=== PATIENT | female | born 1930 | race Hispanic/Latino ===

== ENCOUNTER 2017-03-02 08:48 | Outpatient (CLI) | payer MEDICARE ==
--- NOTE | 2017-03-02 11:05 | Mammography Report ---
BILATERAL MAMMOGRAM with CAD: HISTORY:Cancer screening. Comparison study is dated February 05, 2015. FINDINGS: The breasts are almost entirely fat (<25% glandular). No mass, distortion, suspicious calcification, or skin change is seen. IMPRESSION: Negative mammogram. There is no mammographic evidence of malignancy. RECOMMENDATION: Follow-up per ACS guidelines. BI-RADS CATEGORY: 1 = Negative ACR BI-RADS MAMMOGRAPHIC CODES: 0 = Needs additional imaging evaluation; 1 = Negative; 2 = Benign; 3 = Probably benign; 4 = Suspicious; 5 = Malignant; 6 = Known biopsy-proven malignancy COMMENT: 1. Dense breast tissue, i.e., adenosis, fibrocystic changes, etc., may obscure an underlying neoplasm. 2. Approximately 10% of cancers are not detected with mammography. 3. A negative mammography report should not delay biopsy if a clinically suspicious mass is present. COMMENT: Patient follow-up letters are generated in [employer].
== END 2017-03-02 08:49 | disposition home or self-care (01) ==
LOC: MAMMO 08:48
PROVIDERS: ATTEND Obstetrics & Gynecology Gynecology
DX: Z12.31 Encounter for screening mammogram for malignant neoplasm of breast (principal)
CPT/HCPCS: 77067; G0202

== ENCOUNTER 2018-11-18 12:00 | Outpatient (CLI) | payer MEDICARE ==
[2018-11-18 12:27] LABS: Basophils % (Auto) 0.4 % (0.0-1.8); Eosinophils # (Auto) 0.1 K/mm3 (0.0-0.4); Eosinophils % (Auto) 1.4 % (0.0-4.3); Hematocrit 38.6 % (30.3-42.9); Lymphocytes # (Auto) 1.7 K/mm3 (1.2-5.4); Lymphocytes % (Auto) 23.8 % (13.4-35.0); Mean Corpuscular HGB Conc 34 % (30-34); Mean Corpuscular Volume 90 fl (79-97); Monocytes # (Auto) 0.9 K/mm3 (0.0-0.8); Monocytes % (Auto) 12.3 % (0.0-7.3); Platelet Count 217 K/mm3 (140-440); Red Blood Count 4.28 M/mm3 (3.65-5.03); Red Cell Distribution Width 12.9 % (13.2-15.2)
[2018-11-18 13:14] LABS: Erythrocyte Sedimentation Rate 10 mm/Hr (0-20)
== END 2018-11-18 12:01 | disposition home or self-care (01) ==
LOC: LAB 12:00
PROVIDERS: ATTEND Psychiatry & Neurology Neurology
DX: R51 Headache (principal); E11.9 Type 2 diabetes mellitus without complications; I10 Essential (primary) hypertension; E78.00 Pure hypercholesterolemia, unspecified; K21.9 Gastro-esophageal reflux disease without esophagitis; E03.9 Hypothyroidism, unspecified; M19.90 Unspecified osteoarthritis, unspecified site; Z90.49 Acquired absence of other specified parts of digestive tract
CPT/HCPCS: 36415; 85025; 85652

== ENCOUNTER 2020-02-26 15:42 | Inpatient (IN) | payer MEDICARE ==
[2020-02-26] MEDS ORDERED: ACETAMINOPHEN 500 MG TAB PO ONE (16:37)
--- NOTE | 2020-02-26 17:11 | Emergency Department Report ---
ED Fever HPI - General Chief Complaint: Fever Stated Complaint: WEAKNESS/FALL/FEVER Time Seen by Provider: 02/26/20 16:25 - History of Present Illness Initial Comments: 89-year-old female with history of A. fib, CVA, presents to ED following a fall earlier today. Daughter states patient fell earlier this morning at around 8 AM and then again this afternoon at around 3 PM. Her daughter called EMS because she was unable to pick her up by herself. EMS reported patient had a temperature of 102 on their arrival. Daughter states 2 days ago, patient began complaining of some lower back pain. Daughter states she thought it might be due to a UTI because she is prone to having UTIs. Patient denies any headache, sore throat, cough, chest pain, shortness of breath, abdominal pain, vomiting, diarrhea. Patient also denies urinary frequency, dysuria, although she reported to the nurse that she has been having burning with urination. Patient does confirm that she has been having left flank pain x2 days. Daughter states xochitl quan has not had any contact with any one known to be positive for coronavirus. Timing/Duration: this afternoon Fever Severity/Quality: greater than 100.5 F Associated Symptoms: other (reports dysuria and back pain). denies: abdominal pain, chest pain, cough, headache, muscle aches, nausea/vomiting, shortness of breath, sore throat ED Review of Systems ROS: Stated complaint: WEAKNESS/FALL/FEVER Other details as noted in HPI Comment: All other systems reviewed and negative Constitutional: denies: fever ENT: denies: throat pain Respiratory: denies: cough, shortness of breath Cardiovascular: denies: chest pain Gastrointestinal: denies: abdominal pain, vomiting, diarrhea Genitourinary: dysuria. 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) Hx Heart Attack/AMI: No Hx Diabetes: Yes (TYPE II NOTED ON CARDIAC NOTES/PATIENT DENIES) Hx GERD: Yes Hx Liver Disease: No Hx Arthritis: Yes Hx Kidney Stones: Yes (08/02/2013) Hx HIV: No Additional medical history: Pacemaker, UTI, Atrial fibrillation - Surgical History Hx Pacemaker: Yes Hx Appendectomy: Yes (1988) - Social History Smoking Status: Never Smoker Substance Use Type: None - Medications Home Medications: Home Medications Medication Instructions Recorded Confirmed Last Taken Type Atorvastatin [Lipitor] 20 mg PO DAILY 11/17/13 07/01/15 07/01/15 History 80 mg Dabigatran Etexilate Mesylate 150 mg PO BID 11/17/13 07/01/15 07/01/15 History [Pradaxa] 150 mg Levothyroxine Sodium [Synthroid] 75 mcg PO DAILY 11/17/13 07/01/15 07/01/15 History 75 mcg Lactobacillus Combination No.8 1 cap PO DAILY 06/19/14 07/01/15 07/01/15 History [Adult Probiotic] Spironolactone 12.5 mg PO DAILY 06/19/14 07/01/15 07/01/15 History Cholecalciferol (Vitamin D3) 1,000 unit PO DAILY 04/05/15 07/01/15 07/01/15 History [Vitamin D3] Cyanocobalamin/Folic Acid [Vitamin 1 each PO DAILY 04/05/15 07/01/15 07/01/15 History D15-Wrdtz Acid Tablet] carvediloL [Coreg] 6.25 mg PO BID 07/01/15 07/01/15 07/01/15 History ED Physical Exam - General Limitations: Physical Limitation General appearance: alert, in no apparent distress - Head Head exam: Present: atraumatic, normocephalic - Eye Eye exam: Present: normal appearance - ENT ENT exam: Present: mucous membranes moist - Neck Neck exam: Present: normal inspection - Respiratory Respiratory exam: Present: normal lung sounds bilaterally. Absent: respiratory distress - Cardiovascular Cardiovascular Exam: Present: tachycardia, irregular rhythm - GI/Abdominal GI/Abdominal exam: Present: soft. Absent: distended, tenderness - Extremities Exam Extremities exam: Present: normal inspection - Back Exam Back exam: Present: CVA tenderness (L) - Neurological Exam Neurological exam: Present: alert, oriented X3 - Psychiatric Psychiatric exam: Present: normal affect, normal mood - Skin Skin exam: Present: warm, dry, intact, normal color ED Course Vital Signs 02/26/20 02/26/20 02/26/20 15:52 16:00 16:15 Temperature 100.6 F H Pulse Rate 111 H 120 H 111 H Respiratory 24 16 17 Rate Blood Pressure 156/75 153/71 O2 Sat by Pulse 96 96 Oximetry 02/26/20 02/26/20 02/26/20 16:30 16:45 17:00 Temperature Pulse Rate 111 H 108 H 110 H Respiratory 14 26 H 21 Rate Blood Pressure 159/69 159/69 160/69 O2 Sat by Pulse 96 96 95 Oximetry 02/26/20 02/26/20 02/26/20 17:15 17:30 17:45 Temperature Pulse Rate 105 H 114 H 107 H Respiratory 24 10 L 20 Rate Blood Pressure 156/71 153/90 149/79 O2 Sat by Pulse 96 91 96 Oximetry 02/26/20 02/26/20 02/26/20 18:00 18:17 18:25 Temperature 98.6 F Pulse Rate 100 H 100 H Respiratory 20 15 Rate Blood Pressure 129/67 129/67 O2 Sat by Pulse 95 96 Oximetry 02/26/20 02/26/20 18:30 19:00 Temperature Pulse Rate 102 H 85 Respiratory 23 21 Rate Blood Pressure 122/64 115/63 O2 Sat by Pulse 93 94 Oximetry - Reevaluation(s) Reevaluation #1: 02/26/20 17:56 Apparent delay in lab results due to power outage. ED Medical Decision Making - Lab Data Result diagrams: 02/26/20 17:00 02/26/20 17:00 - EKG Data -: EKG Interpreted by Ut EKG shows normal: axis, QRS complexes, ST-T waves Rate: tachycardia (rate 118) - EKG Data Interpretation: no acute changes, other (Afib) - Radiology Data Radiology results: report reviewed, image reviewed - Medical Decision Making 89-year-old female presents to ED with fever and left-sided flank pain. There is some concern that patient may have a UTI, due to multiple urinary tract infections in the past. Patient reported some dysuria, but denied any respiratory symptoms. Patient initially had low-grade fever of 100.6 and mildly tachycardic at 111. O2 sats have remained normal. Blood pressure has been within normal limits as well. WBCs resulted at 14, with lactic acid within normal limits. Chest x-ray shows left-sided pneumonia with small parapneumonic effusion. This could be source of patient's left-sided back pain. Urine also shows evidence of a UTI with patient having 4+ bacteria. Blood and urine c ultures have been sent. Patient initiated on antibiotics. Patient did not meet severe sepsis criteria, however blood pressure began to trend down (although still with normal MAP), so fluid bolus of 30 cc/kg was ordered. Patient had 2 falls at home today and is on pradaxa for her Afib, so CT Head was ordered and read as negative. Patient will be admitted to the hospitalist, Dr Barber, for further management. She would like pt placed on COVID precautions and COVID test sent. - Differential Diagnosis UTI, pneumonia, intracranial bleed Critical care attestation.: If time is entered above; I have spent that time in minutes in the direct care of this critically ill patient, excluding procedure time. ED Disposition Clinical Impression: Pneumonia, UTI (urinary tract infection) Disposition: OP ADMIT IP TO THIS HOSP Is pt being admited?: Yes Condition: Stable Instructions: Bacterial Pneumonia (ED) Referrals: PRIMARY CARE, [Primary Care Provider] - 3-5 Days Time of Disposition: 19:46
--- NOTE | 2020-02-26 17:48 | XRay Report ---
CHEST 1 VIEW 02/26/2020 4:52 PM INDICATION / CLINICAL INFORMATION: fever. COMPARISON: Left subclavian pacemaker leads. FINDINGS: SUPPORT DEVICES: None. HEART / MEDIASTINUM: No significant abnormality. LUNGS / PLEURA: Left basilar parenchymal disease with Small left pleural effusion. Right lung clear. No pneumothorax. ADDITIONAL FINDINGS: No significant additional findings. IMPRESSION: 1. Left lower lobe pneumonia with probable small parapneumonic effusion Signer Name: Oswald Barkley MD Signed: 02/26/2020 5:43 PM Workstation Name: [id number]
[2020-02-26] MEDS ORDERED: cefTRIAXone/NS 1 GM/50 ML 1 GM/50 ML BAG IV ONE (18:00)
[2020-02-26] MEDS ORDERED: AZITHROMYCIN 250 MG TAB PO ONE (18:01)
[2020-02-26 18:08] LABS: Hematocrit 39.2 % (30.3-42.9); Hemoglobin 13.2 gm/dl (10.1-14.3); Red Blood Count 4.36 M/mm3 (3.65-5.03)
[2020-02-26 18:09] LABS: Mean Corpuscular HGB Conc 34 % (30-34); Mean Corpuscular Volume 90 fl (79-97); Platelet Count 140 K/mm3 (140-440); Red Cell Distribution Width 13.2 % (13.2-15.2)
--- NOTE | 2020-02-26 18:33 | Cat Scan Report ---
CT BRAIN: 02/26/2020 INDICATION / CLINICAL INFORMATION: Trauma. COMPARISON: 07/01/2015 FINDINGS: BRAIN/INTRACRANIAL STRUCTURES: Unenhanced CT images of the brain demonstrate no evidence of acute int racranial abnormality. Ventricles and sulci are normal in size and shape for a patient of this age. 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 Chronic white matter hypoattenuation is present throughout the cerebral hemispheric white matter. There is no evidence of hemorrhage or mass. There are no abnormal extra-axial fluid collections. EXTRACRANIAL STRUCTURES: Unremarkable. IMPRESSION: No acute abnormality. Chronic ischemic and age-related changes. No change when compared to 07/01/2015. All CT scans at this location are performed using dose reduction to ALARA by means of automated expos ure control. Signer Name: Paresh Pearl MD Signed: 02/26/2020 6:29 PM Workstation Name: [id number]
[2020-02-26 19:28] LABS: Albumin 3.6 g/dL (3.9-5); Basophils # (Auto) 0.1 K/mm3 (0.0-0.1); Calcium 9.3 mg/dL (8.4-10.2); Eosinophils % (Auto) 0.1 % (0.0-4.3); Monocytes # (Auto) 1.7 K/mm3 (0.0-0.8); Monocytes % (Auto) 12.1 % (0.0-7.3)
[2020-02-26 19:29] LABS: Bacteria,Urine 4+ /HPF (Negative); Bilirubin,Urine NEG (Negative); Blood,Urine LG (Negative); Color,Urine Yellow (Yellow); Mucus,Urine FEW /HPF; Urobilinogen,Urine < 2.0 mg/dL (<2.0)
[2020-02-26] MEDS ORDERED: SODIUM CHLORIDE 0.9% 1000 ML IV SOLN IV ONE (19:40)
[2020-02-26 20:46] LABS: Band Neutrophils # (Manual) 0.1 K/mm3; Total Cells Counted 100
[2020-02-26 20:47] LABS: Eosinophils % (Manual) 0 % (0.0-4.3)
[2020-02-26 20:49] LABS: Anisocytosis Few; Ovalocytes Few; Platelet Estimate Consistent w Auto
--- NOTE | 2020-02-26 22:42 | History and Physical Report ---
History of Present Illness History of present illness: 89-year-old woman with a history of hypertension, diabetes, CVA, a flutter, hypothyroidism comes emergency room with complaints of left flank pain that started on Thursday. Described the pain as sharp, intermittent for about 5 minutes, intensity 4/10, no radiation, pain is now resolved. Also complained that it tanner when she urinates. Denies cough, shortness of breath, myalgia, sick contacts. Status post recent fall x2. Patient will be admitted for pneumonia, rule out COVID, urinary tract infection Review Of Systems: Constitutional: no weight loss, fever, chills Ears, eyes, nose, mouth and throat: no nasal congestion, no nasal discharge, no sinus pressure, blurry vision, diplopia Neck: No neck pain or rigidity. Cardiovascular: No palpitations, chest pain Respiratory: No shortness of breath, cough Gastrointestinal: No hematochezia Genitourinary : no frequency Musculoskeletal: no muscle ache , joint pain Integumentary: no rash, no pruritis Neurological: no parathesias, focal weakness Endocrine: no cold or heat intolerance, no polyuria or polydipsia Hematologic/Lymphatic: no easy bruising, no easy bleeding, no gland swelling Allergic/Immunologic: no urticaria, no angioedema. PAST MEDICAL HISTORY: hypertension, diabetes, CVA, a flutter, PAST SURGICAL HISTORY: Appendectomy, pacemaker SOCIAL HISTORY: Denies alcohol, tobacco, drugs FAMILY HISTORY: Hypertension Medications and Allergies Allergies Allergy/AdvReac Type Severity Reaction Status Date / Time Sulfa (Sulfonamide Allergy Itching Verified 11/17/13 09:26 Antibiotics) Home Medications Medication Instructions Recorded Confirmed Last Taken Type Atorvastatin [Lipitor] 20 mg PO DAILY 11/17/13 02/26/20 1 Day Ago History ~02/25/20 20 Levothyroxine Sodium [Synthroid] 75 mcg PO DAILY 11/17/13 02/26/20 02/26/20 History Spironolactone 12.5 mg PO DAILY 06/19/14 02/26/20 07/01/15 History Flexeril 5 MG TAB 5 mg PO QDAY 02/26/20 02/26/20 1 Day Ago History ~02/25/20 Protonix 40 mg PO QDAY 02/26/20 02/26/20 1 Day Ago History ~02/25/20 Toprol Xl 25 mg PO QDAY 02/26/20 02/26/20 1 Day Ago History ~02/25/20 Xarelto 20 mg PO QDAY 02/26/20 02/26/20 1 Day Ago History ~02/25/20 Active Meds: Active Medications Enoxaparin Sodium (Enoxaparin) 30 mg SUB-Q QDAY YOLANDA Exam - Physical Exam Narrative exam: Gen. appearance: Patient lying in bed, no apparent distress HEENT: Normocephalic, atraumatic, pupils equally round and reactive to light, extraocular movement intact, and no sclericterus,. No JVD or thyromegaly or nodule,neck supple, no carotid bruit ,mucous membranes moist, no exudate or erythema Heart: S1, S2, regular rate and rhythm Lungs: Crackles on the left, breathing comfortable Abdomen: Positive bowel sounds, nontender, nondistended, no organomegaly Extremity: no edema, cyanosis, clubbing Skin: No rash, nodules, warm, dry Neuro: Cranial nerves II to XII intact speech is fluent, moves extremities, sensory intact - Constitutional Vitals: Temp Pulse Resp BP Pulse Ox 98.6 F 85 21 115/63 94 02/26/20 18:25 02/26/20 19:00 02/26/20 19:00 02/26/20 19:00 02/26/20 19:00 Results - Labs CBC & Chem 7: 02/26/20 17:00 02/27/20 00:18 Labs: Abnormal lab results 02/26/20 02/26/20 02/26/20 Range/Units 17:00 17:00 17:00 WBC 14.0 H (4.5-11.0) K/mm3 Wayne % (Auto) 12.1 H (0.0-7.3) % Wayne # 1.7 H (0.0-0.8) K/mm3 Seg Neutrophils % 82.8 H (40.0-70.0) % Seg Neuts % (Manual) 85.0 H (40.0-70.0) % Lymphocytes % (Manual) 6.0 L (13.4-35.0) % Seg Neutrophils # 11.6 H (1.8-7.7) K/mm3 Seg Neutrophils # Man 11.9 H (1.8-7.7) K/mm3 Lymphocytes # (Manual) 0.8 L (1.2-5.4) K/mm3 Monocytes # (Manual) 1.0 H (0.0-0.8) K/mm3 APTT 38.4 H (24.2-36.6) Sec. D-Dimer (0-234) ng/mlDDU Sodium 134 L (137-145) mmol/L BUN 18 H (7-17) mg/dL Glucose 134 H (65-100) mg/dL Total Bilirubin 1.70 H (0.1-1.2) mg/dL AST 49 H (5-40) units/L Albumin 3.6 L (3.9-5) g/dL Urine WBC (Auto) (0.0-6.0) /HPF 02/26/20 02/26/20 Range/Units 17:45 22:08 WBC (4.5-11.0) K/mm3 Wayne % (Auto) (0.0-7.3) % Wayne # (0.0-0.8) K/mm3 Seg Neutrophils % (40.0-70.0) % Seg Neuts % (Manual) (40.0-70.0) % Lymphocytes % (Manual) (13.4-35.0) % Seg Neutrophils # (1.8-7.7) K/mm3 Seg Neutrophils # Man (1.8-7.7) K/mm3 Lymphocytes # (Manual) (1.2-5.4) K/mm3 Monocytes # (Manual) (0.0-0.8) K/mm3 APTT (24.2-36.6) Sec. D-Dimer 726.26 H (0-234) ng/mlDDU Sodium (137-145) mmol/L BUN (7-17) mg/dL Glucose (65-100) mg/dL Total Bilirubin (0.1-1.2) mg/dL AST (5-40) units/L Albumin (3.9-5) g/dL Urine WBC (Auto) 179.0 H (0.0-6.0) /HPF - Imaging and Cardiology EKG: image reviewed Chest x-ray: report reviewed CT Scan - head: report reviewed Assessment and Plan Assessment Pneumonia, rule out COVID Urinary tract infection Start IV Rocephin, azithromycin Follow cultures, consult ID Initiate COVID order set and labs Diabetes Check fingersticks, start sliding scale Hypertension Start outpatient medications Atrial flutter, stable Continue Xarelto Hypothyroidism continue Synthroid DVT prophylaxis
[2020-02-26 22:50] LABS: C-Reactive Protein 20.8 mg/dL (0.00-1.30)
[2020-02-26] MEDS ORDERED: ONDANSETRON 4 MG/2 ML INJ IV PRN (22:54)
[2020-02-26] MEDS ORDERED: DEXTROSE 50% IN WATER (25GM) 50 ML SYRINGE IV PRN (22:54)
[2020-02-26] MEDS ORDERED: ACETAMINOPHEN 325 MG TAB PO PRN (22:54)
[2020-02-27 02:36] LABS: C-Reactive Protein 24.1 mg/dL (0.00-1.30)
[2020-02-27 05:47] LABS: Basophils % (Auto) 0.1 % (0.0-1.8); Hematocrit 41.8 % (30.3-42.9); Hemoglobin 13.7 gm/dl (10.1-14.3); Lymphocytes # (Auto) 0.7 K/mm3 (1.2-5.4); Lymphocytes % (Auto) 4.8 % (13.4-35.0); Mean Corpuscular HGB Conc 33 % (30-34); Mean Corpuscular Volume 91 fl (79-97); Platelet Count 152 K/mm3 (140-440); Red Blood Count 4.61 M/mm3 (3.65-5.03); Red Cell Distribution Width 13.2 % (13.2-15.2)
[2020-02-27] MEDS: LEVOTHYROXINE 75 MCG TAB PO SCH (05:57)
[2020-02-27 06:03] LABS: Calcium 9.1 mg/dL (8.4-10.2)
[2020-02-27] MEDS ORDERED: XARELTO 20 MG PO SCH (10:00)
[2020-02-27] MEDS ORDERED: ENOXAPARIN 30 MG/0.3 ML INJ SUB-Q SCH (10:00)
[2020-02-27] MEDS ORDERED: ATORVASTATIN 20 MG PO SCH (10:00)
[2020-02-27] MEDS ORDERED: FLEXERIL 5 MG PO SCH (10:00)
[2020-02-27] MEDS ORDERED: TOPROL 25 MG PO SCH (10:00)
[2020-02-27] MEDS ORDERED: NON-FORMULARY EACH (Protonix 40 MG) PO SCH (10:00)
[2020-02-27] MEDS: CYCLOBENZAPRINE 10 MG TAB PO SCH (10:01)
[2020-02-27] MEDS: RIVAROXABAN 20 MG TAB PO SCH (10:01)
[2020-02-27] MEDS: SPIRONOLACTONE 25 MG TAB PO SCH (10:03)
[2020-02-27] MEDS: PANTOPRAZOLE 40 MG TAB PO SCH (10:04)
[2020-02-27] MEDS: METOPROLOL SUCCINATE XL 25 MG TAB PO SCH (10:04)
[2020-02-27] MEDS: INSULIN LISPRO 100 UNIT/ML SUB-Q SCH ×4 (10:53→22:34)
--- NOTE | 2020-02-27 13:20 | Consultation ---
History of Present Illness - Reason for Consult Consult date: 02/27/20 - History of Present Illness 89-year-old female past medical history A. fib, CVA admitted to the hospital due to a fall. Per the patient's family patient fell on the morning of admission, and then again in the afternoon which prompted her admission to the hospital. She was brought in by EMS, and it was noted the patient had a temperature of 102 when they arrived. The patient also complains of some lower back pain which began approximately 2 days prior to admission. Patient is noted to have recurrent UTIs, however she denies any dysuria at this time. Febrile on admission to 100.6 degrees with a white count of 14. She also has an associated lymphopenia. Not currently on antibiotics. Blood cultures are currently pending. Significant pyuria on urinalysis. Imaging personally reviewed: Chest x-ray: Left lower lobe pneumonia. Review of Systems: Bold if positive, otherwise negative General: fevers, chills, rigors HEENT: visual disturbance, diplopia, eye pain Respiratory: cough, sputum, hemoptysis, shortness of breath Cardiovascular: chest pain, syncope Gastrointestinal: nausea, vomiting, diarrhea, abdominal pain Genitourinary: dysuria, hematuria, flank pain Musculoskeletal: neck pain, back pain, joint pain, edema Neurologic: headaches, seizures Hematologic: easy bruising or bleeding Endocrine: night sweats, acute weight loss Skin: rash, jaundice, redness Psychiatric: suicidal, homicidal ideation Medications and Allergies Allergies Allergy/AdvReac Type Severity Reaction Status Date / Time Sulfa (Sulfonamide Allergy Itching Verified 11/17/13 09:26 Antibiotics) Home Medications Medication Instructions Recorded Confirmed Last Taken Type Atorvastatin [Lipitor] 20 mg PO DAILY 11/17/13 02/26/20 1 Day Ago History ~02/25/20 20 Levothyroxine Sodium [Synthroid] 75 mcg PO DAILY 11/17/13 02/26/20 02/26/20 History Spironolactone 12.5 mg PO DAILY 06/19/14 02/26/20 07/01/15 History Flexeril 5 MG TAB 5 mg PO QDAY 02/26/20 02/26/20 1 Day Ago History ~02/25/20 Protonix 40 mg PO QDAY 02/26/20 02/26/20 1 Day Ago History ~02/25/20 Toprol Xl 25 mg PO QDAY 02/26/20 02/26/20 1 Day Ago History ~02/25/20 Xarelto 20 mg PO QDAY 02/26/20 02/26/20 1 Day Ago History ~02/25/20 Active Meds: Active Medications Acetaminophen (Tylenol) 650 mg PO Q4H PRN PRN Reason: Pain MILD(1-3)/Fever >100.5/GRACE Atorvastatin Calcium (Lipitor) 20 mg PO DAILY [facility] Last Admin: 02/27/20 10:04 Dose: 20 mg Documented by: Cyclobenzaprine HCl (Flexeril) 5 mg PO QDAY [facility] Last Admin: 02/27/20 10:01 Dose: 5 mg Documented by: Dextrose (D50w (25gm) Syringe) 50 ml IV Q30MIN PRN; Protocol PRN Reason: Hypoglycemia Insulin Human Lispro (Humalog) 0 unit SUB-Q ACHS [facility]; Protocol Last Admin: 02/27/20 10:53 Dose: 6 unit Documented by: Levothyroxine Sodium (Synthroid) 75 mcg PO DAILY@0600 [facility] Last Admin: 02/27/20 05:57 Dose: 75 mcg Documented by: Metoprolol Succinate (Metoprolol Xl) 25 mg PO QDAY [facility] Last Admin: 02/27/20 10:04 Dose: 25 mg Documented by: Ondansetron HCl (Zofran) 4 mg IV Q8H PRN PRN Reason: Nausea And Vomiting Pantoprazole Sodium (Protonix) 40 mg PO DAILY [facility] Last Admin: 02/27/20 10:04 Dose: 40 mg Documented by: Rivaroxaban (Xarelto) 20 mg PO QDDIAB [facility] Last Admin: 02/27/20 10:01 Dose: 20 mg Documented by: Sodium Chloride (Sodium Chloride Flush Syringe 10 Ml) 10 ml IV BID [facility] Last Admin: 02/27/20 10:06 Dose: 10 ml Documented by: Sodium Chloride (Sodium Chloride Flush Syringe 10 Ml) 10 ml IV PRN PRN PRN Reason: LINE FLUSH Spironolactone (Aldactone) 12.5 mg PO DAILY [facility] Last Admin: 02/27/20 10:03 Dose: 12.5 mg Documented by: Physical Examination - Physical Exam Narrative exam: Physical exam reviewed in chart, but deferred due to PPE conservation strategy - Constitutional Vitals: Vital Signs Temp Pulse Resp BP Pulse Ox 98.7 F 108 H 20 135/69 99 02/27/20 05:24 02/27/20 10:04 02/27/20 05:24 02/27/20 10:04 02/27/20 08:33 Temperature -Last 24 Hours Temperature 98.7 F Temperature 97.5 F Temperature 97.8 F Temperature 98.6 F Temperature 100.6 F Results - Labs CBC & Chem 7: 02/27/20 04:39 02/27/20 04:39 Labs: Abnormal lab results 02/26/20 02/26/20 02/26/20 Range/Units 17:00 17:00 17:00 WBC 14.0 H (4.5-11.0) K/mm3 Lymph % (Auto) (13.4-35.0) % Barbour % (Auto) 12.1 H (0.0-7.3) % Lymph # (1.2-5.4) K/mm3 Barbour # 1.7 H (0.0-0.8) K/mm3 Seg Neutrophils % 82.8 H (40.0-70.0) % Seg Neuts % (Manual) 85.0 H (40.0-70.0) % Lymphocytes % (Manual) 6.0 L (13.4-35.0) % Seg Neutrophils # 11.6 H (1.8-7.7) K/mm3 Seg Neutrophils # Man 11.9 H (1.8-7.7) K/mm3 Lymphocytes # (Manual) 0.8 L (1.2-5.4) K/mm3 Monocytes # (Manual) 1.0 H (0.0-0.8) K/mm3 APTT 38.4 H (24.2-36.6) Sec. D-Dimer (0-234) ng/mlDDU Sodium 134 L (137-145) mmol/L BUN 18 H (7-17) mg/dL Glucose 134 H (65-100) mg/dL POC Glucose (70-105) Total Bilirubin 1.70 H (0.1-1.2) mg/dL AST 49 H (5-40) units/L Lactate Dehydrogenase (91-180) units/L C-Reactive Protein (0.00-1.30) mg/dL Albumin 3.6 L (3.9-5) g/dL Urine WBC (Auto) (0.0-6.0) /HPF 02/26/20 02/26/20 02/26/20 Range/Units 17:45 22:08 22:08 WBC (4.5-11.0) K/mm3 Lymph % (Auto) (13.4-35.0) % Barbour % (Auto) (0.0-7.3) % Lymph # (1.2-5.4) K/mm3 Barbour # (0.0-0.8) K/mm3 Seg Neutrophils % (40.0-70.0) % Seg Neuts % (Manual) (40.0-70.0) % Lymphocytes % (Manual) (13.4-35.0) % Seg Neutrophils # (1.8-7.7) K/mm3 Seg Neutrophils # Man (1.8-7.7) K/mm3 Lymphocytes # (Manual) (1.2-5.4) K/mm3 Monocytes # (Manual) (0.0-0.8) K/mm3 APTT (24.2-36.6) Sec. D-Dimer 726.26 H (0-234) ng/mlDDU Sodium (137-145) mmol/L BUN (7-17) mg/dL Glucose 139 H (65-100) mg/dL POC Glucose (70-105) Total Bilirubin (0.1-1.2) mg/dL AST (5-40) units/L Lactate Dehydrogenase 306 H (91-180) units/L C-Reactive Protein 20.80 H (0.00-1.30) mg/dL Albumin (3.9-5) g/dL Urine WBC (Auto) 179.0 H (0.0-6.0) /HPF 02/27/20 02/27/20 02/27/20 Range/Units 00:18 00:18 04:39 WBC 14.3 H (4.5-11.0) K/mm3 Lymph % (Auto) 4.8 L (13.4-35.0) % Barbour % (Auto) (0.0-7.3) % Lymph # 0.7 L (1.2-5.4) K/mm3 Barbour # 1.0 H (0.0-0.8) K/mm3 Seg Neutrophils % 88.1 H (40.0-70.0) % Seg Neuts % (Manual) (40.0-70.0) % Lymphocytes % (Manual) (13.4-35.0) % Seg Neutrophils # 12.6 H (1.8-7.7) K/mm3 Seg Neutrophils # Man (1.8-7.7) K/mm3 Lymphocytes # (Manual) (1.2-5.4) K/mm3 Monocytes # (Manual) (0.0-0.8) K/mm3 APTT (24.2-36.6) Sec. D-Dimer 865.92 H (0-234) ng/mlDDU Sodium (137-145) mmol/L BUN (7-17) mg/dL Glucose 130 H (65-100) mg/dL POC Glucose (70-105) Total Bilirubin (0.1-1.2) mg/dL AST (5-40) units/L Lactate Dehydrogenase 341 H (91-180) units/L C-Reactive Protein 24.10 H (0.00-1.30) mg/dL Albumin (3.9-5) g/dL Urine WBC (Auto) (0.0-6.0) /HPF 02/27/20 02/27/20 02/27/20 Range/Units 04:39 10:54 12:14 WBC (4.5-11.0) K/mm3 Lymph % (Auto) (13.4-35.0) % Barbour % (Auto) (0.0-7.3) % Lymph # (1.2-5.4) K/mm3 Barbour # (0.0-0.8) K/mm3 Seg Neutrophils % (40.0-70.0) % Seg Neuts % (Manual) (40.0-70.0) % Lymphocytes % (Manual) (13.4-35.0) % Seg Neutrophils # (1.8-7.7) K/mm3 Seg Neutrophils # Man (1.8-7.7) K/mm3 Lymphocytes # (Manual) (1.2-5.4) K/mm3 Monocytes # (Manual) (0.0-0.8) K/mm3 APTT (24.2-36.6) Sec. D-Dimer (0-234) ng/mlDDU Sodium (137-145) mmol/L BUN 18 H (7-17) mg/dL Glucose (65-100) mg/dL POC Glucose 298 H 119 H (70-105) Total Bilirubin (0.1-1.2) mg/dL AST (5-40) units/L Lactate Dehydrogenase (91-180) units/L C-Reactive Protein (0.00-1.30) mg/dL Albumin (3.9-5) g/dL Urine WBC (Auto) (0.0-6.0) /HPF Assessment and Plan Cultures: Blood culture 02/26/2020 A/P: 89 yo F past medical history A. fib, CVA admitted to the hospital with fevers and possible UTI. #Acute sepsis: Present with fevers and cytosis. Possibly secondary to UTI versus COVID-19. #Pyuria: Pending urine culture. Recommend starting ceftriaxone empirically #Left lower lobe pneumonia: Pending COVID-19 test. Recs: -Started ceftriaxone 2g q24h -please collect and follow up COVID-19 test -Follow up urine cultures -Follow up blood cultures Thank you for the consult, we will continue to follow. Emilee Long MD [facility] ([facility] M: [phone] O: [phone] F: [phone]
--- NOTE | 2020-02-27 15:06 | Progress Note ---
Assessment and Plan Assessment and plan: Pneumonia, rule out COVID Urinary tract infection Contt IV Rocephin, azithromycin Follow cultures, consulted ID Discussed with Dr. Long Initiate COVID order set and labs Diabetes mellitus type 2 Check fingersticks, start sliding scale Hypertension Start outpatient medications Atrial flutter, stable Continue Xarelto Hypothyroidism continue Synthroid DVT prophylaxis 02/27/20 Patient with pneumonia and UTI. swab sent to r/o Covid-19 I called and updated daughter Hospitalist Physical - Physical exam Narrative exam: GEN: Not in acute distress, lying in bed HEENT: Normocephalic, atraumatic, Neck: supple, No JVD Lungs: Crackles left lung, no wheeze heart;S1 and S2 reg, no murmurs, rubs or gallop Abd:soft, non tender, non distended, normal bowel sounds, Ext: No edema, no clubbing, no cyanosis, Neuro: Awake,alert,oriented X3 , no focal signs, - Constitutional Vitals: Temp Pulse Resp BP Pulse Ox 98.7 F 108 H 20 135/69 99 02/27/20 05:24 02/27/20 10:04 02/27/20 05:24 02/27/20 10:04 02/27/20 08:33 Results - Labs CBC & Chem 7: 02/27/20 04:39 02/27/20 04:39 Labs: Laboratory Last Values WBC 14.3 K/mm3 (4.5-11.0) H 02/27/20 04:39 RBC 4.61 M/mm3 (3.65-5.03) 02/27/20 04:39 Hgb 13.7 gm/dl (10.1-14.3) 02/27/20 04:39 Hct 41.8 % (30.3-42.9) 02/27/20 04:39 MCV 91 fl (79-97) 02/27/20 04:39 MCH 30 pg (28-32) 02/27/20 04:39 MCHC 33 % (30-34) 02/27/20 04:39 RDW 13.2 % (13.2-15.2) 02/27/20 04:39 Plt Count 152 K/mm3 (140-440) 02/27/20 04:39 Lymph % (Auto) 4.8 % (13.4-35.0) L 02/27/20 04:39 [place] % (Auto) 7.0 % (0.0-7.3) 02/27/20 04:39 Eos % (Auto) 0.0 % (0.0-4.3) 02/27/20 04:39 Baso % (Auto) 0.1 % (0.0-1.8) 02/27/20 04:39 Lymph # 0.7 K/mm3 (1.2-5.4) L 02/27/20 04:39 [place] # 1.0 K/mm3 (0.0-0.8) H 02/27/20 04:39 Eos # 0.0 K/mm3 (0.0-0.4) 02/27/20 04:39 Baso # 0.0 K/mm3 (0.0-0.1) 02/27/20 04:39 Add Manual Diff Complete 02/26/20 17:00 Total Counted 100 02/26/20 17:00 Seg Neutrophils % 88.1 % (40.0-70.0) H 02/27/20 04:39 Seg Neuts % (Manual) 85.0 % (40.0-70.0) H 02/26/20 17:00 Band Neutrophils % 1.0 % 02/26/20 17:00 Lymphocytes % (Manual) 6.0 % (13.4-35.0) L 02/26/20 17:00 Reactive Lymphs % (Man) 0 % 02/26/20 17:00 Monocytes % (Manual) 7.0 % (0.0-7.3) 02/26/20 17:00 Eosinophils % (Manual) 0 % (0.0-4.3) 02/26/20 17:00 Basophils % (Manual) 1.0 % (0.0-1.8) 02/26/20 17:00 Metamyelocytes % 0 % 02/26/20 17:00 Myelocytes % 0 % 02/26/20 17:00 Promyelocytes % 0 % 02/26/20 17:00 Blast Cells % 0 % 02/26/20 17:00 Nucleated RBC % Not Reportable 02/26/20 17:00 Seg Neutrophils # 12.6 K/mm3 (1.8-7.7) H 02/27/20 04:39 Seg Neutrophils # Man 11.9 K/mm3 (1.8-7.7) H 02/26/20 17:00 Band Neutrophils # 0.1 K/mm3 02/26/20 17:00 Lymphocytes # (Manual) 0.8 K/mm3 (1.2-5.4) L 02/26/20 17:00 Abs React Lymphs (Man) 0.0 K/mm3 02/26/20 17:00 Monocytes # (Manual) 1.0 K/mm3 (0.0-0.8) H 02/26/20 17:00 Eosinophils # (Manual) 0.0 K/mm3 (0.0-0.4) 02/26/20 17:00 Basophils # (Manual) 0.1 K/mm3 (0.0-0.1) 02/26/20 17:00 Metamyelocytes # 0.0 K/mm3 02/26/20 17:00 Myelocytes # 0.0 K/mm3 02/26/20 17:00 Promyelocytes # 0.0 K/mm3 02/26/20 17:00 Blast Cells # 0.0 K/mm3 02/26/20 17:00 WBC Morphology Not Reportable 02/26/20 17:00 Hypersegmented Neuts Not Reportable 02/26/20 17:00 Hyposegmented Neuts Not Reportable 02/26/20 17:00 Hypogranular Neuts Not Reportable 02/26/20 17:00 Smudge Cells Not Reportable 02/26/20 17:00 Toxic Granulation Not Reportable 02/26/20 17:00 Toxic Vacuolation Not Reportable 02/26/20 17:00 Dohle Bodies Not Reportable 02/26/20 17:00 Pelger-Huet Anomaly Not Reportable 02/26/20 17:00 [place] Rods Not Reportable 02/26/20 17:00 Platelet Estimate Consistent w auto 02/26/20 17:00 Clumped Platelets Not Reportable 02/26/20 17:00 Plt Clumps, EDTA Not Reportable 02/26/20 17:00 Large Platelets Not Reportable 02/26/20 17:00 Giant Platelets Not Reportable 02/26/20 17:00 Platelet Satelliting Not Reportable 02/26/20 17:00 Plt Morphology Comment Not Reportable 02/26/20 17:00 RBC Morphology Not Reportable 02/26/20 17:00 Dimorphic RBCs Not Reportable 02/26/20 17:00 Polychromasia Few 02/26/20 17:00 Hypochromasia Not Reportable 02/26/20 17:00 Poikilocytosis Not Reportable 02/26/20 17:00 Anisocytosis Few 02/26/20 17:00 Microcytosis Not Reportable 02/26/20 17:00 Macrocytosis Not Reportable 02/26/20 17:00 Spherocytes Not Reportable 02/26/20 17:00 Pappenheimer Bodies Not Reportable 02/26/20 17:00 Sickle Cells Not Reportable 02/26/20 17:00 Target Cells Not Reportable 02/26/20 17:00 Tear Drop Cells Not Reportable 02/26/20 17:00 Ovalocytes Few 02/26/20 17:00 Helmet Cells Not Reportable 02/26/20 17:00 [place] Bodies Not Reportable 02/26/20 17:00 [place] Rings Not Reportable 02/26/20 17:00 [place] Cells Not Reportable 02/26/20 17:00 Bite Cells Not Reportable 02/26/20 17:00 Crenated Cell Not Reportable 02/26/20 17:00 Elliptocytes Not Reportable 02/26/20 17:00 Acanthocytes (Spur) Not Reportable 02/26/20 17:00 Rouleaux Not Reportable 02/26/20 17:00 Hemoglobin C Crystals Not Reportable 02/26/20 17:00 Schistocytes Not Reportable 02/26/20 17:00 Malaria parasites Not Reportable 02/26/20 17:00 David Bodies Not Reportable 02/26/20 17:00 Hem Pathologist Commnt No 02/26/20 17:00 APTT 38.4 Sec. (24.2-36.6) H 02/26/20 17:00 D-Dimer 865.92 ng/mlDDU (0-234) H 02/27/20 00:18 Sodium 137 mmol/L (137-145) 02/27/20 04:39 Potassium 3.8 mmol/L (3.6-5.0) 02/27/20 04:39 Chloride 102.0 mmol/L (98-107) 02/27/20 04:39 Carbon Dioxide 22 mmol/L (22-30) 02/27/20 04:39 Anion Gap 17 mmol/L 02/27/20 04:39 BUN 18 mg/dL (7-17) H 02/27/20 04:39 Creatinine 1.0 mg/dL (0.7-1.2) 02/27/20 04:39 Estimated GFR 52 ml/min 02/27/20 04:39 BUN/Creatinine Ratio 18 % 02/27/20 04:39 Glucose 93 mg/dL (65-100) 02/27/20 04:39 POC Glucose 119 (70-105) H 02/27/20 12:14 Lactic Acid 1.00 mmol/L (0.7-2.0) 02/26/20 19:19 Calcium 9.1 mg/dL (8.4-10.2) 02/27/20 04:39 Ferritin 274.9 ng/mL (13.0-400.0) 02/27/20 00:18 Total Bilirubin 1.70 mg/dL (0.1-1.2) H 02/26/20 17:00 AST 49 units/L (5-40) H 02/26/20 17:00 ALT 18 units/L (7-56) 02/26/20 17:00 Alkaline Phosphatase 53 units/L (35-129) 02/26/20 17:00 Lactate Dehydrogenase 341 units/L (91-180) H 02/27/20 00:18 Troponin T < 0.010 ng/mL (0.00-0.029) 02/26/20 17:00 C-Reactive Protein 24.10 mg/dL (0.00-1.30) H 02/27/20 00:18 Total Protein 7.3 g/dL (6.3-8.2) 02/26/20 17:00 Albumin 3.6 g/dL (3.9-5) L 02/26/20 17:00 Albumin/Globulin Ratio 1.0 % 02/26/20 17:00 Procalcitonin 2.29 ng/mL (<0.15) 02/26/20 22:08 Urine Color Yellow (Yellow) 02/26/20 17:45 Urine Turbidity Cloudy (Clear) 02/26/20 17:45 Urine pH 7.0 (5.0-7.0) 02/26/20 17:45 Ur Specific [place] 1.014 (1.003-1.030) 02/26/20 17:45 Urine Protein 30 mg/dl mg/dL (Negative) 02/26/20 17:45 Urine Glucose (UA) 150 mg/dL (Negative) 02/26/20 17:45 Urine Ketones Tr mg/dL (Negative) 02/26/20 17:45 Urine Blood Lg (Negative) 02/26/20 17:45 Urine Nitrite Neg (Negative) 02/26/20 17:45 Urine Bilirubin Neg (Negative) 02/26/20 17:45 Urine Urobilinogen < 2.0 mg/dL (<2.0) 02/26/20 17:45 Ur Leukocyte Esterase Lg (Negative) 02/26/20 17:45 Urine WBC (Auto) 179.0 /HPF (0.0-6.0) H 02/26/20 17:45 Urine RBC (Auto) 6.0 /HPF (0.0-6.0) 02/26/20 17:45 U Epithel Cells (Auto) 1.0 /HPF (0-13.0) 02/26/20 17:45 Urine Bacteria (Auto) 4+ /HPF (Negative) 02/26/20 17:45 Urine Mucus Few /HPF 02/26/20 17:45 Microbiology: Microbiology 02/26/20 17:45 Urine,Clean Catch Urine Culture - Preliminary 02/26/20 17:00 Peripheral/Venous Blood Culture - Preliminary Culture in Progress 02/26/20 17:00 Peripheral/Venous Blood Culture - Preliminary Culture in Progress [place]/IV: Voiding Method Toilet IV Catheter Type [Right INT / Saline Lock Forearm] Active Medications - Current Medications Current Medications: Generic Name Dose Route Start Last Admin Trade Name Freq PRN Reason Stop Dose Admin Acetaminophen 650 mg 02/26/20 22:54 Tylenol PO Q4H PRN Pain MILD(1-3)/Fever >100.5/GRACE Atorvastatin Calcium 20 mg 02/27/20 10:00 02/27/20 10:04 Lipitor PO 20 mg DAILY YOLANDA Administration Cyclobenzaprine HCl 5 mg 02/27/20 10:00 02/27/20 10:01 Flexeril PO 5 mg QDAY YOLANDA Administration Dextrose 50 ml 02/26/20 22:54 D50w (25gm) Syringe IV Q30MIN PRN Hypoglycemia Protocol Ceftriaxone Sodium 2 gm in 100 mls @ 200 mls/hr 02/27/20 14:00 Rocephin/Ns 2 Gm/100 Ml IV Q24HR YOLANDA Protocol Insulin Human Lispro 0 unit 02/27/20 07:30 02/27/20 11:30 Humalog SUB-Q Not Given ACHS YOLANDA Protocol Levothyroxine Sodium 75 mcg 02/27/20 06:00 02/27/20 05:57 Synthroid PO 75 mcg DAILY@0600 YOLANDA Administration Metoprolol Succinate 25 mg 02/27/20 10:00 02/27/20 10:04 Metoprolol Xl PO 25 mg QDAY YOLANDA Administration Ondansetron HCl 4 mg 02/26/20 22:54 Zofran IV Q8H PRN Nausea And Vomiting Pantoprazole Sodium 40 mg 02/27/20 10:00 02/27/20 10:04 Protonix PO 40 mg DAILY YOLANDA Administration Rivaroxaban 20 mg 02/27/20 08:00 02/27/20 10:01 Xarelto PO 20 mg QDDIAB YOLANDA Administration Sodium Chloride 10 ml 02/27/20 10:00 02/27/20 10:06 Sodium Chloride Flush Syringe 10 Ml IV 10 ml BID YOLANDA Administration Sodium Chloride 10 ml 02/26/20 22:54 Sodium Chloride Flush Syringe 10 Ml IV PRN PRN LINE FLUSH Spironolactone 12.5 mg 02/27/20 10:00 02/27/20 10:03 Aldactone PO 12.5 mg DAILY YOLANDA Administration
[2020-02-27] MEDS: cefTRIAXone/NS 2 GM/100 ML 2 GM/100 ML BAG IV SCH (15:40)
--- NOTE | 2020-02-27 19:46 | Cat Scan Report ---
CT OF THE ABDOMEN AND PELVIS WITHOUT CONTRAST INDICATION / CLINICAL INFORMATION: Fever and abdominal pain. Rule out pyelonephritis TECHNIQUE: All CT scans at this location are performed using CT dose reduction for ALARA by means of automated e xposure control. COMPARISON: None available. FINDINGS: ABDOMEN: There is mild to moderate left pelvocaliectasis and ureterectasis. There is mild left perine phric soft tissue stranding. There are 2 adjacent calculi in the proximal left ureter at the L3-4 lev el, the largest of which measures approximately 6 mm. There is also a small nonobstructive calculus i n the lower pole of the left kidney. There are calcified granulomata in the liver and spleen. The gallbladder, bile ducts, pancreas, adren al glands, right kidney and bowel demonstrate no significant abnormality. No adenopathy is seen. Ther e are moderate atherosclerotic calcifications involving the aorta without aneurysm. There are small b ilateral pleural effusions, larger on the left area mild left basilar subsegmental atelectasis is not ed. PELVIS: The distal ureters and urinary bladder are normal. The uterus and adnexal regions are unremar kable. There are scattered left colonic diverticula without acute inflammation. There is no evidence of appendicitis. No abnormal mass or fluid collection is seen. I do not identify a hernia. There is m oderately advanced lumbar spondylosis. IMPRESSION: 2 adjacent calculi in the left ureter at the L3-4 level, the largest of which measures 6 mm, are causing [id number] hydronephrosis. Signer Name: Leroy Carmona MD Signed: 02/27/2020 7:41 PM Workstation Name: [id number]
[2020-02-28 04:13] LABS: Hematocrit 35.5 % (30.3-42.9); Hemoglobin 11.9 gm/dl (10.1-14.3); Mean Corpuscular HGB Conc 34 % (30-34); Mean Corpuscular Volume 90 fl (79-97); Platelet Count 121 K/mm3 (140-440); Red Blood Count 3.94 M/mm3 (3.65-5.03); Red Cell Distribution Width 12.9 % (13.2-15.2)
[2020-02-28 04:31] LABS: Calcium 8.2 mg/dL (8.4-10.2)
[2020-02-28] MEDS: LEVOTHYROXINE 75 MCG TAB PO SCH (07:21)
[2020-02-28] MEDS: INSULIN LISPRO 100 UNIT/ML SUB-Q SCH ×4 (08:31→21:13)
[2020-02-28] MEDS: RIVAROXABAN 20 MG TAB PO SCH (08:34)
--- NOTE | 2020-02-28 10:31 | Progress Note ---
Assessment and Plan Assessment and plan: Pneumonia, COVID negative Continue IV antibiotics Urinary tract infection Contt IV Rocephin, azithromycin Follow cultures, consulted ID Diabetes mellitus type 2 Check fingersticks, start sliding scale Hypertension Continue antihypertensive medications Atrial flutter, stable Continue Xarelto Hypothyroidism continue Synthroid DVT prophylaxis 02/27/20 Patient with pneumonia and UTI. swab sent to r/o Covdc-19 Dr. Luong called and updated daughter 02/28/2020. Continue IV antibiotics. ID following. Follow-up cultures. History Interval history: No new issues overnight. Hospitalist Physical - Constitutional Vitals: Temp Pulse Resp BP Pulse Ox 99.2 F 113 H 20 156/83 96 02/28/20 07:27 02/28/20 07:27 02/28/20 07:27 02/28/20 07:27 02/28/20 08:09 General appearance: Present: no acute distress, well-nourished - EENT Eyes: Present: PERRL, EOM intact ENT: hearing intact, clear oral mucosa, dentition normal - Neck Neck: Present: supple, normal ROM - Respiratory Respiratory effort: normal Respiratory: bilateral: CTA - Cardiovascular Rhythm: regular Heart Sounds: Present: S1 & S2. Absent: gallop, rub - Extremities Extremities: no ischemia, No edema, Full ROM - Abdominal General gastrointestinal: soft, non-tender, non-distended, normal bowel sounds - Integumentary Integumentary: Present: clear, warm, dry - Neurologic Neurologic: CNII-XII intact, moves all extremities Results - Labs CBC & Chem 7: 02/28/20 03:50 02/28/20 03:50 Labs: Laboratory Last Values WBC 8.0 K/mm3 (4.5-11.0) 02/28/20 03:50 RBC 3.94 M/mm3 (3.65-5.03) 02/28/20 03:50 Hgb 11.9 gm/dl (10.1-14.3) 02/28/20 03:50 Hct 35.5 % (30.3-42.9) D 02/28/20 03:50 MCV 90 fl (79-97) 02/28/20 03:50 MCH 30 pg (28-32) 02/28/20 03:50 MCHC 34 % (30-34) 02/28/20 03:50 RDW 12.9 % (13.2-15.2) L 02/28/20 03:50 Plt Count 121 K/mm3 (140-440) L 02/28/20 03:50 Lymph % (Auto) 4.8 % (13.4-35.0) L 02/27/20 04:39 [place] % (Auto) 7.0 % (0.0-7.3) 02/27/20 04:39 Eos % (Auto) 0.0 % (0.0-4.3) 02/27/20 04:39 Baso % (Auto) 0.1 % (0.0-1.8) 02/27/20 04:39 Lymph # 0.7 K/mm3 (1.2-5.4) L 02/27/20 04:39 [place] # 1.0 K/mm3 (0.0-0.8) H 02/27/20 04:39 Eos # 0.0 K/mm3 (0.0-0.4) 02/27/20 04:39 Baso # 0.0 K/mm3 (0.0-0.1) 02/27/20 04:39 Add Manual Diff Complete 02/26/20 17:00 Total Counted 100 02/26/20 17:00 Seg Neutrophils % 88.1 % (40.0-70.0) H 02/27/20 04:39 Seg Neuts % (Manual) 85.0 % (40.0-70.0) H 02/26/20 17:00 Band Neutrophils % 1.0 % 02/26/20 17:00 Lymphocytes % (Manual) 6.0 % (13.4-35.0) L 02/26/20 17:00 Reactive Lymphs % (Man) 0 % 02/26/20 17:00 Monocytes % (Manual) 7.0 % (0.0-7.3) 02/26/20 17:00 Eosinophils % (Manual) 0 % (0.0-4.3) 02/26/20 17:00 Basophils % (Manual) 1.0 % (0.0-1.8) 02/26/20 17:00 Metamyelocytes % 0 % 02/26/20 17:00 Myelocytes % 0 % 02/26/20 17:00 Promyelocytes % 0 % 02/26/20 17:00 Blast Cells % 0 % 02/26/20 17:00 Nucleated RBC % Not Reportable 02/26/20 17:00 Seg Neutrophils # 12.6 K/mm3 (1.8-7.7) H 02/27/20 04:39 Seg Neutrophils # Man 11.9 K/mm3 (1.8-7.7) H 02/26/20 17:00 Band Neutrophils # 0.1 K/mm3 02/26/20 17:00 Lymphocytes # (Manual) 0.8 K/mm3 (1.2-5.4) L 02/26/20 17:00 Abs React Lymphs (Man) 0.0 K/mm3 02/26/20 17:00 Monocytes # (Manual) 1.0 K/mm3 (0.0-0.8) H 02/26/20 17:00 Eosinophils # (Manual) 0.0 K/mm3 (0.0-0.4) 02/26/20 17:00 Basophils # (Manual) 0.1 K/mm3 (0.0-0.1) 02/26/20 17:00 Metamyelocytes # 0.0 K/mm3 02/26/20 17:00 Myelocytes # 0.0 K/mm3 02/26/20 17:00 Promyelocytes # 0.0 K/mm3 02/26/20 17:00 Blast Cells # 0.0 K/mm3 02/26/20 17:00 WBC Morphology Not Reportable 02/26/20 17:00 Hypersegmented Neuts Not Reportable 02/26/20 17:00 Hyposegmented Neuts Not Reportable 02/26/20 17:00 Hypogranular Neuts Not Reportable 02/26/20 17:00 Smudge Cells Not Reportable 02/26/20 17:00 Toxic Granulation Not Reportable 02/26/20 17:00 Toxic Vacuolation Not Reportable 02/26/20 17:00 Dohle Bodies Not Reportable 02/26/20 17:00 Pelger-Huet Anomaly Not Reportable 02/26/20 17:00 [place] Rods Not Reportable 02/26/20 17:00 Platelet Estimate Consistent w auto 02/26/20 17:00 Clumped Platelets Not Reportable 02/26/20 17:00 Plt Clumps, EDTA Not Reportable 02/26/20 17:00 Large Platelets Not Reportable 02/26/20 17:00 Giant Platelets Not Reportable 02/26/20 17:00 Platelet Satelliting Not Reportable 02/26/20 17:00 Plt Morphology Comment Not Reportable 02/26/20 17:00 RBC Morphology Not Reportable 02/26/20 17:00 Dimorphic RBCs Not Reportable 02/26/20 17:00 Polychromasia Few 02/26/20 17:00 Hypochromasia Not Reportable 02/26/20 17:00 Poikilocytosis Not Reportable 02/26/20 17:00 Anisocytosis Few 02/26/20 17:00 Microcytosis Not Reportable 02/26/20 17:00 Macrocytosis Not Reportable 02/26/20 17:00 Spherocytes Not Reportable 02/26/20 17:00 Pappenheimer Bodies Not Reportable 02/26/20 17:00 Sickle Cells Not Reportable 02/26/20 17:00 Target Cells Not Reportable 02/26/20 17:00 Tear Drop Cells Not Reportable 02/26/20 17:00 Ovalocytes Few 02/26/20 17:00 Helmet Cells Not Reportable 02/26/20 17:00 [place] Bodies Not Reportable 02/26/20 17:00 [place] Rings Not Reportable 02/26/20 17:00 [place] Cells Not Reportable 02/26/20 17:00 Bite Cells Not Reportable 02/26/20 17:00 Crenated Cell Not Reportable 02/26/20 17:00 Elliptocytes Not Reportable 02/26/20 17:00 Acanthocytes (Spur) Not Reportable 02/26/20 17:00 Rouleaux Not Reportable 02/26/20 17:00 Hemoglobin C Crystals Not Reportable 02/26/20 17:00 Schistocytes Not Reportable 02/26/20 17:00 Malaria parasites Not Reportable 02/26/20 17:00 David Bodies Not Reportable 02/26/20 17:00 Hem Pathologist Commnt No 02/26/20 17:00 APTT 38.4 Sec. (24.2-36.6) H 02/26/20 17:00 D-Dimer 865.92 ng/mlDDU (0-234) H 02/27/20 00:18 Sodium 139 mmol/L (137-145) 02/28/20 03:50 Potassium 3.6 mmol/L (3.6-5.0) 02/28/20 03:50 Chloride 104.0 mmol/L (98-107) 02/28/20 03:50 Carbon Dioxide 24 mmol/L (22-30) 02/28/20 03:50 Anion Gap 15 mmol/L 02/28/20 03:50 BUN 19 mg/dL (7-17) H 02/28/20 03:50 Creatinine 0.9 mg/dL (0.7-1.2) 02/28/20 03:50 Estimated GFR 59 ml/min 02/28/20 03:50 BUN/Creatinine Ratio 21 % 02/28/20 03:50 Glucose 97 mg/dL (65-100) 02/28/20 03:50 POC Glucose 99 (70-105) 02/28/20 08:30 Lactic Acid 1.00 mmol/L (0.7-2.0) 02/26/20 19:19 Calcium 8.2 mg/dL (8.4-10.2) L 02/28/20 03:50 Ferritin 274.9 ng/mL (13.0-400.0) 02/27/20 00:18 Total Bilirubin 1.70 mg/dL (0.1-1.2) H 02/26/20 17:00 AST 49 units/L (5-40) H 02/26/20 17:00 ALT 18 units/L (7-56) 02/26/20 17:00 Alkaline Phosphatase 53 units/L (35-129) 02/26/20 17:00 Lactate Dehydrogenase 341 units/L (91-180) H 02/27/20 00:18 Troponin T < 0.010 ng/mL (0.00-0.029) 02/26/20 17:00 C-Reactive Protein 24.10 mg/dL (0.00-1.30) H 02/27/20 00:18 Total Protein 7.3 g/dL (6.3-8.2) 02/26/20 17:00 Albumin 3.6 g/dL (3.9-5) L 02/26/20 17:00 Albumin/Globulin Ratio 1.0 % 02/26/20 17:00 Procalcitonin 2.29 ng/mL (<0.15) 02/26/20 22:08 Urine Color Yellow (Yellow) 02/26/20 17:45 Urine Turbidity Cloudy (Clear) 02/26/20 17:45 Urine pH 7.0 (5.0-7.0) 02/26/20 17:45 Ur Specific [place] 1.014 (1.003-1.030) 02/26/20 17:45 Urine Protein 30 mg/dl mg/dL (Negative) 02/26/20 17:45 Urine Glucose (UA) 150 mg/dL (Negative) 02/26/20 17:45 Urine Ketones Tr mg/dL (Negative) 02/26/20 17:45 Urine Blood Lg (Negative) 02/26/20 17:45 Urine Nitrite Neg (Negative) 02/26/20 17:45 Urine Bilirubin Neg (Negative) 02/26/20 17:45 Urine Urobilinogen < 2.0 mg/dL (<2.0) 02/26/20 17:45 Ur Leukocyte Esterase Lg (Negative) 02/26/20 17:45 Urine WBC (Auto) 179.0 /HPF (0.0-6.0) H 02/26/20 17:45 Urine RBC (Auto) 6.0 /HPF (0.0-6.0) 02/26/20 17:45 U Epithel Cells (Auto) 1.0 /HPF (0-13.0) 02/26/20 17:45 Urine Bacteria (Auto) 4+ /HPF (Negative) 02/26/20 17:45 Urine Mucus Few /HPF 02/26/20 17:45 Coronavirus (PCR) Negative (Negative) 02/27/20 16:40 Microbiology: Microbiology 02/26/20 17:00 Peripheral/Venous Blood Culture - Preliminary NO GROWTH AFTER 24 HOURS 02/26/20 17:00 Peripheral/Venous Blood Culture - Preliminary NO GROWTH AFTER 24 HOURS 02/26/20 17:45 Urine,Clean Catch Urine Culture - Preliminary [place]/IV: Voiding Method Toilet IV Catheter Type [Right INT / Saline Lock Forearm] Active Medications - Current Medications Current Medications: Generic Name Dose Route Start Last Admin Trade Name Freq PRN Reason Stop Dose Admin Acetaminophen 650 mg 02/26/20 22:54 02/27/20 16:28 Tylenol PO 650 mg Q4H PRN Administration Pain MILD(1-3)/Fever >100.5/GRACE Atorvastatin Calcium 20 mg 02/27/20 10:00 02/27/20 10:04 Lipitor PO 20 mg DAILY YOLANDA Administration Cyclobenzaprine HCl 5 mg 02/27/20 10:00 02/27/20 10:01 Flexeril PO 5 mg QDAY YOLANDA Administration Dextrose 50 ml 02/26/20 22:54 02/27/20 17:35 D50w (25gm) Syringe IV 10 ml Q30MIN PRN Administration Hypoglycemia Protocol Ceftriaxone Sodium 2 gm in 100 mls @ 200 mls/hr 02/27/20 14:00 02/27/20 15:40 Rocephin/Ns 2 Gm/100 Ml IV 200 mls/hr Q24HR YOLANDA Administration Protocol Insulin Human Lispro 0 unit 02/27/20 07:30 02/28/20 08:31 Humalog SUB-Q Not Given ACHS YOLANDA Protocol Levothyroxine Sodium 75 mcg 02/27/20 06:00 02/28/20 07:21 Synthroid PO 75 mcg DAILY@0600 YOLANDA Administration Metoprolol Succinate 25 mg 02/27/20 10:00 02/27/20 10:04 Metoprolol Xl PO 25 mg QDAY YOLANDA Administration Ondansetron HCl 4 mg 02/26/20 22:54 Zofran IV Q8H PRN Nausea And Vomiting Pantoprazole Sodium 40 mg 02/27/20 10:00 02/27/20 10:04 Protonix PO 40 mg DAILY YOLANDA Administration Rivaroxaban 20 mg 02/27/20 08:00 02/28/20 08:34 Xarelto PO 20 mg QDDIAB YOLANDA Administration Sodium Chloride 10 ml 02/27/20 10:00 02/27/20 22:33 Sodium Chloride Flush Syringe 10 Ml IV 10 ml BID YOLANDA Administration Sodium Chloride 10 ml 02/26/20 22:54 Sodium Chloride Flush Syringe 10 Ml IV PRN PRN LINE FLUSH Spironolactone 12.5 mg 02/27/20 10:00 02/27/20 10:03 Aldactone PO 12.5 mg DAILY YOLANDA Administration
[2020-02-28] MEDS: METOPROLOL SUCCINATE XL 25 MG TAB PO SCH (12:07)
[2020-02-28] MEDS: CYCLOBENZAPRINE 10 MG TAB PO SCH (12:08)
[2020-02-28] MEDS: PANTOPRAZOLE 40 MG TAB PO SCH (12:08)
[2020-02-28] MEDS: SPIRONOLACTONE 25 MG TAB PO SCH (12:13)
[2020-02-28] MEDS: cefTRIAXone/NS 2 GM/100 ML 2 GM/100 ML BAG IV SCH (13:02)
--- NOTE | 2020-02-28 13:55 | Progress Note ---
Assessment and Plan Cultures: Blood culture 02/26/2020 no growth to date Urine culture 02/26/2020 no growth A/P: 89 yo F past medical history A. fib, CVA admitted to the hospital with fevers and possible UTI. #Acute sepsis: Present with fevers and leukocytosis. Likely secondary to UTI and pneumonia #Pyuria: Urine culture negative. Recommend starting ceftriaxone empirically #Left lower lobe pneumonia: Continue ceftriaxone. Recs: -Continue ceftriaxone 2g q24h -Ordered repeat procalcitonin for tomorrow -Assuming afebrile for 24 hours can discharge with cefdinir 300 mg every 12 hours to complete 5 total days of therapy. Stop date: 03/02/2020 Thank you for the consult, we will continue to follow. Emilee Long MD [facility] M: [phone] O: [phone] F: [phone] Subjective Date of service: 02/28/20 Interval history: Remains mildly febrile, with a normal white count. Which is improved since yesterday. Objective - Exam Narrative Exam: Physical Exam: Constitutional: Alert, cooperative. No acute distress Head, Ears, Nose: Normocephalic, atraumatic. External ears, nose normal Eyes: Conjunctivae/corneas clear. No icterus. No ptosis. Neck: Supple, no meningeal signs Oral: dentition fair, no thrush Cardiovascular: S1, S2 normal. Respiratory: Good air entry, clear to auscultation bilaterally GI: Soft, non-tender; bowel sounds normal. No peritoneal signs. Musculoskeletal: No pedal edema, no cyanosis. Skin: No rash or abscess Hem/Lymphatic: No palpable cervical or supraclavicular nodes. No lymphangitis Psych: Mood ok. Affect normal Neurological: Awake, alert, oriented. No gross abnormality - Constitutional Vitals: Vital Signs Temp Pulse Resp BP Pulse Ox 99.2 F 105 H 20 131/68 96 02/28/20 07:27 02/28/20 12:13 02/28/20 07:27 02/28/20 12:13 02/28/20 08:09 Temperature -Last 24 Hours Temperature 99.2 F Temperature 100.5 F Temperature 99.0 F Temperature 102.5 F - Labs CBC & Chem 7: 02/28/20 03:50 02/28/20 03:50 Labs: Abnormal lab results 02/28/20 02/28/20 02/28/20 Range/Units 03:50 03:50 11:59 RDW 12.9 L (13.2-15.2) % Plt Count 121 L (140-440) K/mm3 BUN 19 H (7-17) mg/dL POC Glucose 194 H (70-105) Calcium 8.2 L (8.4-10.2) mg/dL
[2020-02-29] MEDS: LEVOTHYROXINE 75 MCG TAB PO SCH (05:14)
[2020-02-29] MEDS: INSULIN LISPRO 100 UNIT/ML SUB-Q SCH ×2 (08:29→12:03)
[2020-02-29 09:00] VITALS: BP 170/77
[2020-02-29] MEDS: RIVAROXABAN 20 MG TAB PO SCH (09:00)
[2020-02-29] MEDS: METOPROLOL SUCCINATE XL 25 MG TAB PO SCH (09:00)
[2020-02-29] MEDS: SPIRONOLACTONE 25 MG TAB PO SCH (09:01)
[2020-02-29] MEDS: CYCLOBENZAPRINE 10 MG TAB PO SCH (09:01)
[2020-02-29] MEDS: PANTOPRAZOLE 40 MG TAB PO SCH (09:02)
[2020-02-29] MEDS: cefTRIAXone/NS 2 GM/100 ML 2 GM/100 ML BAG IV SCH (09:02)
--- NOTE | 2020-02-29 10:35 | Discharge Summary ---
Providers - Providers Date of Admission: 02/26/20 22:40 Date of discharge: 02/29/20 Attending physician: CHI FRIEDMAN 02/26/20 23:40 Consult to Physician [CONS] Routine Comment: Consulting Provider: CAROL MORALEZ Physician Instructions: Reason For Exam: PNA/COVID Primary care physician: BEATER HEAD Hospitalization Reason for admission: UTI Condition: Stable Hospital course: 89-year-old woman with a history of hypertension, diabetes, CVA, a flutter, hypothyroidism comes emergency room with complaints of left flank pain that started on Thursday [employer]. The patient was admitted with diagnosis of acute sepsis secondary to UTI and left lower lobe pneumonia. COVID testing was found to be negative. The patient was treated with IV antibiotics of ceftriaxone with significant improvement. ID saw the patient in consultation and felt patient could be discharged home with cefdinir 300 mg every 12 hours to complete 5 total days of therapy. Dedicated discharge time 32 minutes Disposition: DC-01 TO HOME OR SELFCARE Time spent for discharge: 32 - Discharge Diagnoses (1) Sepsis Status: Acute (2) Pneumonia Status: Acute (3) UTI (urinary tract infection) Status: Acute (4) Atrial flutter Status: Acute (5) Diabetes Status: Acute (6) HTN (hypertension) Status: Acute Core Measure Documentation - Palliative Care Palliative Care/ Comfort Measures: Not Applicable - Core Measures Any of the following diagnoses?: none Exam - Constitutional Vitals: Temp Pulse Resp BP Pulse Ox 98.0 F 101 H 20 170/77 97 02/29/20 08:14 02/29/20 09:01 02/29/20 08:17 02/29/20 09:01 02/29/20 08:14 General appearance: Present: no acute distress, well-nourished - EENT Eyes: Present: PERRL ENT: hearing intact, clear oral mucosa - Neck Neck: Present: supple, normal ROM - Respiratory Respiratory effort: normal Respiratory: bilateral: CTA - Cardiovascular Heart Sounds: Present: S1 & S2. Absent: rub, click - Extremities Extremities: pulses symmetrical, No edema Peripheral Pulses: within normal limits - Abdominal General gastrointestinal: Present: soft, non-tender, non-distended, normal bowel sounds Female genitourinary: Present: normal - Integumentary Integumentary: Present: clear, warm, dry - Musculoskeletal Musculoskeletal: gait normal, strength equal bilaterally - Psychiatric Psychiatric: appropriate mood/affect, intact judgment & insight - Neurologic Neurologic: CNII-XII intact, moves all extremities Plan Activity: advance as tolerated Weight Bearing Status: Weight Bear as Tolerated Follow up with: PRIMARY CARE, [Primary Care Provider] - 3-5 Days LENORE ULRICH MD [Staff Physician] - 7 Days Prescriptions: Cefdinir 300 mg PO Q12HR #10 capsule
--- NOTE | 2020-02-29 14:36 | Progress Note ---
Assessment and Plan Cultures: Blood culture 02/26/2020 no growth to date Urine culture 02/26/2020 no growth A/P: 89 yo F past medical history A. fib, CVA admitted to the hospital with fevers and possible UTI. #Acute sepsis: Present with fevers and leukocytosis. Likely secondary to UTI and pneumonia #Pyuria: Urine culture negative. Recommend starting ceftriaxone empirically #Left lower lobe pneumonia: Continue ceftriaxone. Recs: -Okay for discharge with cefdinir 300 mg every 12 hours to complete 5 total days of therapy. Stop date: 03/02/2020 Thank you for the consult, we will continue to follow. Emilee Long MD [facility] ([facility]) M: [phone] O: [phone] F: [phone] Subjective Date of service: 02/29/20 Interval history: Afebrile, with a normal white count. Which is improved since yesterday. Objective - Exam Narrative Exam: Physical Exam: Constitutional: Alert, cooperative. No acute distress Head, Ears, Nose: Normocephalic, atraumatic. Eyes: Conjunctivae/corneas clear. No icterus. No ptosis. Neck: Supple, no meningeal signs Oral: dentition fair, no thrush Cardiovascular: S1, S2 normal. Respiratory: Good air entry, clear to auscultation bilaterally GI: Soft, non-tender; bowel sounds normal. No peritoneal signs. Musculoskeletal: No pedal edema, no cyanosis. Skin: No rash or abscess Hem/Lymphatic: No palpable cervical or supraclavicular nodes. No lymphangitis Psych: Mood ok. Affect normal Neurological: Awake, alert, oriented. No gross abnormality - Constitutional Vitals: Vital Signs Temp Pulse Resp BP Pulse Ox 98.0 F 101 H 20 170/77 97 02/29/20 08:14 02/29/20 09:01 02/29/20 08:17 02/29/20 09:01 02/29/20 10:02 Temperature -Last 24 Hours Temperature 98.0 F Temperature 97.5 F Temperature 97.9 F Temperature 98.2 F - Labs CBC & Chem 7: 02/28/20 03:50 02/28/20 03:50 Labs: Abnormal lab results 02/28/20 Range/Units 20:23 POC Glucose 115 H (70-105)
== END 2020-02-29 15:00 | disposition home or self-care (01) | DRG 871 ==
LOC: ED 15:42 → 3A 22:40 → 4A 02-28 01:21
PROVIDERS: ADMIT Internal Medicine; ATTEND Hospitalist
DX: A41.9 Sepsis, unspecified organism (principal); J18.9 Pneumonia, unspecified organism; N39.0 Urinary tract infection, site not specified; I48.92 Unspecified atrial flutter; E03.9 Hypothyroidism, unspecified; I10 Essential (primary) hypertension; E11.9 Type 2 diabetes mellitus without complications; Z90.49 Acquired absence of other specified parts of digestive tract; Z95.0 Presence of cardiac pacemaker; Z79.899 Other long term (current) drug therapy; Z82.49 Family history of ischemic heart disease and other diseases of the circulatory system; Z88.2 Allergy status to sulfonamides; Z03.818 Encounter for observation for suspected exposure to other biological agents ruled out
CPT/HCPCS: 36415; 70450; 71045; 74176; 80048; 80053; 81001; 82140; 82728; 82947; 82962; 83615; 84145; 84484; 85007; 85025; 85027; 85379; 85730; 86140; 87040; 87086; 93005; 94760; G0378; A9270-GY; J0696; J1815; J7030; U0003